=== PATIENT | female | born 1975 | race Caucasian/White ===

== ENCOUNTER 2016-05-25 22:29 | Emergency (ER) | payer OTHER ==
[~2016-05-25 22:29] MED LIST: BACTRIM DS TABL1 TA1 PO; FIORINAL CAPSUL1 CAP PO; FLEXERIL PO; IBUPROFEN PO; IBUPROFEN800 MG PO; KEFLEX500 MG PO; MEDROL PO; MOTRIN600 M1 PO; NAPROXEN PO; NO MEDICATIONS; PEN-VEE K PO; PHENERGAN25 M1 PO; PYRIDIUM100 MG PO; ROBAXIN PO; ULTRAM PO; VOLTAREN50 MG PO; VOLTAREN75 MG PO
== END 2016-05-25 22:31 | disposition home or self-care (01) ==
LOC: SED 22:29
DX: M79.601 Pain in right arm (principal); R20.2 Paresthesia of skin; J45.909 Unspecified asthma, uncomplicated; F41.9 Anxiety disorder, unspecified; Z98.51 Tubal ligation status; F17.210 Nicotine dependence, cigarettes, uncomplicated
CPT/HCPCS: 99282